=== PATIENT | male | born 1990 | race Caucasian/White ===

== ENCOUNTER 2016-09-13 16:20 | Emergency (ER) | payer OTHER, BC ==
[~2016-09-13] VITALS: Ht 167.6 cm; Wt 85.5 kg
[2016-09-13 17:49] LABS: HEMATOCRIT 42.5 % (38.0-50.0); MCHC 34.4 G/DL (30.0-36.0); MCV 87.4 FL (86-99); MEAN PLAT.VOLUME 9.9 uM^3 (9.0-12.4); PLATELET COUNT 299 K/uL (156-360); RBC DIS.WIDTH-CV 12.7 % (11.8-14.6); RBC DIS.WIDTH-SD 40.6 % (39-53); RED BLOOD COUNT 4.86 M/uL (4.00-5.50); WHITE BLOOD COUNT 9.5 K/uL (4.1-10.2)
[2016-09-13 18:11] LABS: CHLORIDE 105 mEq/L (99-109); POTASSIUM 3.8 mEq/L (3.7-5.4); SODIUM 139 mEq/L (136-147)
[2016-09-13 18:13] LABS: GLUCOSE 90 mg/dL (70-99)
[2016-09-13 18:14] LABS: ANION GAP 10 MEQ/L (2-14)
[2016-09-13 18:15] LABS: TOTAL BILIRUBIN 0.6 mg/dL (0.0-1.0)
[2016-09-13 18:16] LABS: SERUM ETHYL ALCOHOL < 10 mg/dL
[2016-09-13 18:17] LABS: ALKALINE PHOSPHATASE 83 IU/L (3-129); GFR ESTIMATE (CALCULATED) > 59 mL/min/
[2016-09-13 18:18] LABS: UREA NITROGEN (BUN) 13 mg/dL (9-23)
[2016-09-13 18:20] LABS: LIPASE 11 U/L (1.0-51.0)
[2016-09-13] MEDS ORDERED: FLEXERIL10 MG PO (19:43)
[2016-09-13] MEDS ORDERED: ULTRAM50 MG PO (19:43)
[2016-09-13 20:10] VITALS: BP 119/63
== END 2016-09-13 20:11 | disposition home or self-care (01) ==
LOC: EME 16:20
PROVIDERS: Emergency Medicine
DX: S39.012A Strain of muscle, fascia and tendon of lower back, initial encounter (principal); V89.2XXA Person injured in unspecified motor-vehicle accident, traffic, initial encounter; Y92.410 Unspecified street and highway as the place of occurrence of the external cause; F17.200 Nicotine dependence, unspecified, uncomplicated
CPT/HCPCS: 71250; 72128; 72131; 74176; 80053; 83690; 85027; 99281; 99284; G0480; J2405; J3010; J7030